=== PATIENT | female | born 1950 | race Caucasian/White ===

== ENCOUNTER 2020-05-15 06:04 | Inpatient (IN) ==
[2020-04-29 12:14] LABS: Basophils # 0.1 10*3/uL (0.0-0.2); Basophils % 0.8 % (0.0-0.8); Eosinophils # 0.1 10*3/uL (0.0-0.87); Eosinophils % 1.8 % (0.00-10.9); Hematocrit 37.8 VOL% (35.7-47.0); Hemoglobin 12.1 GM/DL (12.0-16.0); Immature Granulocytes % 0.3 %; Immature Granulocytes Absolute 0.02 #; Lymphocytes # 2.1 10*3/uL (1.4-4.0); Lymphocytes % 27.7 % (21.3-54.2); Mean Corpuscular Volume 78.4 FL (87-102); Mean Platelet Volume 9.7 FL (9.6-12.0); Monocytes % 9.2 % (1.7-12.7); Neutrophils % 60.2 % (38.7-73.9); Platelet Count 383 T/CUMM (130-400); Red Blood Count 4.82 MC/CUMM (3.8-5.5); Red Cell Distribution Width 15.2 % (9.3-17.3); White Blood Count 7.6 T/CUMM (4-12)
[2020-04-29 12:49] LABS: Calcium 8.5 MG/DL (8.5-10.1); Osmolality,Calculated 275.7 MOS/KG (273-304); Potassium 4.4 MMOL/L (3.5-5.1)
[~2020-05-15 06:04] MED LIST: ALVIMOPAN 12 MG CAPSULE PO ONE; cefOXitin 1,000 MG in SYRINGE 1 EACH IV ONE
[2020-05-15] MEDS ORDERED: MIDAZOLAM 2 MG/2 ML VIAL ONE (06:22)
[2020-05-15] MEDS ORDERED: fentaNYL 100 MCG/2 ML VIAL ONE ×2 (06:23→09:34)
[2020-05-15] MEDS ORDERED: INDOCYANINE GREEN 25 MG VIAL IV ONE (06:23)
[2020-05-15] MEDS ORDERED: cefOXitin 1,000 MG in SYRINGE 1 EACH IV ONE (06:30)
[2020-05-15] MEDS ORDERED: ALVIMOPAN 12 MG CAPSULE PO ONE (06:30)
[2020-05-15] MEDS: LACTATED RINGERS 1,000 ML IV SCH ×3 (06:52→11:16)
[2020-05-15] MEDS ORDERED: ePHEDrine 50 MG/ML VIAL ONE (07:41)
[2020-05-15] MEDS ORDERED: propofoL 200 MG/20 ML VIAL IV ONE (07:45)
[2020-05-15] MEDS ORDERED: LIDOCAINE 2% 5 ML VIAL ONE (07:45)
[2020-05-15] MEDS ORDERED: SEVOFLURANE 1 UNIT/15 MINUTE INH ONE ×14 (07:45→11:27)
[2020-05-15] MEDS ORDERED: ROCURONIUM 50 MG/5 ML VIAL IV ONE ×2 (07:45→08:16)
[2020-05-15] MEDS ORDERED: ONDANSETRON 4 MG/2 ML VIAL ONE (10:34)
[2020-05-15] MEDS ORDERED: NEOSTIGMINE 10 MG/10 ML VIAL ONE ×3 (10:37)
[2020-05-15] MEDS ORDERED: GLYCOPYRROLATE 0.4 MG/2 ML VIAL ONE (10:38)
[2020-05-15] MEDS ORDERED: MORPHINE 4 MG/1 ML VIAL IV PRN (11:11)
[2020-05-15] MEDS ORDERED: GLUCAGON 1 MG VIAL IM PRN (11:15)
[2020-05-15] MEDS ORDERED: DEXTROSE 50% 25 GM/50 ML VIAL IV PRN (11:15)
[2020-05-15] MEDS ORDERED: ONDANSETRON 4 MG/2 ML VIAL IV PRN (11:39)
[2020-05-15 11:42] LABS: Bilirubin,Urine Negative (Negative); Blood, Urine Negative (Negative); Glucose,Urine (UA) Negative (Negative); Hyaline Casts,Urine 8 /LPF (0-3); Ketones,Urine Negative (Negative); Mucus,Urine Occasional /LPF (Occasional); Nitrite,Urine Negative (Negative); Protein,Urine Negative; RBC,Urine 1 /HPF (0-4); Squamous Epithelial Cell,Urine Occasional /HPF (0-10); Urine Appearance CLEAR (Clear); Urine Color Yellow (Yellow); Urine Specific Gravity 1.021 (1.001-1.035); Urine Urobilinogen < 2.0 EU/DL (0.2-1.0); WBC,Urine <1 /HPF (0-6)
[2020-05-15] MEDS: HYDROmorphone 2 MG/1 ML VIAL IV PRN ×2 (11:48→12:05)
[2020-05-15 12:17] LABS: Hematocrit 33.9 VOL% (35.7-47.0)
[2020-05-15] MEDS: cefOXitin 2,000 MG in SYRINGE 1 EACH IV SCH ×2 (15:49→20:08)
[2020-05-15] MEDS: DEXTROSE 5% LACTATED RINGERS 1,000 ML IV SCH (17:15)
[2020-05-15] MEDS: INSULIN REGULAR 100 UNIT/ML SUBCUT SCH (18:59)
[2020-05-15] MEDS: ALVIMOPAN 12 MG CAPSULE PO SCH (20:09)
[2020-05-16] MEDS: INSULIN REGULAR 100 UNIT/ML SUBCUT SCH ×4 (01:21→19:00)
[2020-05-16] MEDS: DEXTROSE 5% LACTATED RINGERS 1,000 ML IV SCH ×5 (01:26→22:15)
[2020-05-16] MEDS: cefOXitin 2,000 MG in SYRINGE 1 EACH IV SCH (03:10)
[2020-05-16] MEDS: ENOXAPARIN 40 MG/0.4 ML SYRINGE SUBCUT SCH (05:37)
[2020-05-16 05:40] LABS: Basophils % 0.3 % (0.0-0.8); Eosinophils # 0.1 10*3/uL (0.0-0.87); Eosinophils % 0.5 % (0.00-10.9); Hematocrit 32.4 VOL% (35.7-47.0); Hemoglobin 10.5 GM/DL (12.0-16.0); Immature Granulocytes % 0.5 %; Immature Granulocytes Absolute 0.05 #; Lymphocytes # 1.8 10*3/uL (1.4-4.0); Lymphocytes % 18.9 % (21.3-54.2); Mean Corpuscular HGB Conc 32.4 GM/DL (32-36); Mean Corpuscular Volume 77.7 FL (87-102); Mean Platelet Volume 9.9 FL (9.6-12.0); Monocytes % 12.6 % (1.7-12.7); Neutrophils % 67.2 % (38.7-73.9); Platelet Count 278 T/CUMM (130-400); Red Blood Count 4.17 MC/CUMM (3.8-5.5); Red Cell Distribution Width 15.8 % (9.3-17.3); White Blood Count 9.4 T/CUMM (4-12)
[2020-05-16 06:00] LABS: Calcium 8.1 MG/DL (8.5-10.1); Potassium 3.4 MMOL/L (3.5-5.1)
[2020-05-16] MEDS: PANTOPRAZOLE 40 MG TABLET PO SCH (09:14)
[2020-05-16] MEDS: ALVIMOPAN 12 MG CAPSULE PO SCH ×2 (09:14→22:15)
[2020-05-16] MEDS: ONDANSETRON 4 MG/2 ML VIAL IV PRN ×3 (12:08→22:15)
[2020-05-17] MEDS: INSULIN REGULAR 100 UNIT/ML SUBCUT SCH ×4 (00:34→23:33)
[2020-05-17] MEDS: DEXTROSE 5% LACTATED RINGERS 1,000 ML IV SCH ×3 (04:00→21:21)
[2020-05-17] MEDS: ENOXAPARIN 40 MG/0.4 ML SYRINGE SUBCUT SCH (06:02)
[2020-05-17] MEDS: PANTOPRAZOLE 40 MG TABLET PO SCH (09:23)
[2020-05-17] MEDS: ALVIMOPAN 12 MG CAPSULE PO SCH ×2 (09:23→21:19)
[2020-05-18] MEDS: ENOXAPARIN 40 MG/0.4 ML SYRINGE SUBCUT SCH (05:42)
[2020-05-18] MEDS: INSULIN REGULAR 100 UNIT/ML SUBCUT SCH ×4 (07:45→23:07)
[2020-05-18] MEDS: ALVIMOPAN 12 MG CAPSULE PO SCH ×2 (08:32→21:24)
[2020-05-18] MEDS: PANTOPRAZOLE 40 MG TABLET PO SCH (08:32)
[2020-05-18] MEDS: DEXTROSE 5% LACTATED RINGERS 1,000 ML IV SCH ×2 (11:59→17:14)
[2020-05-19] MEDS: INSULIN REGULAR 100 UNIT/ML SUBCUT SCH ×4 (00:34→18:08)
[2020-05-19] MEDS: DEXTROSE 5% LACTATED RINGERS 1,000 ML IV SCH ×3 (00:47→20:12)
[2020-05-19] MEDS: ENOXAPARIN 40 MG/0.4 ML SYRINGE SUBCUT SCH (05:47)
[2020-05-19] MEDS: LEVOTHYROXINE 100 MCG TABLET PO SCH (05:47)
[2020-05-19] MEDS: ALVIMOPAN 12 MG CAPSULE PO SCH ×2 (08:20→21:17)
[2020-05-19] MEDS: ATORVASTATIN 40 MG TABLET PO SCH (08:20)
[2020-05-19] MEDS: PANTOPRAZOLE 40 MG TABLET PO SCH (08:20)
[2020-05-20] MEDS: ENOXAPARIN 40 MG/0.4 ML SYRINGE SUBCUT SCH (05:14)
[2020-05-20] MEDS: INSULIN REGULAR 100 UNIT/ML SUBCUT SCH (05:18)
[2020-05-20] MEDS: LEVOTHYROXINE 100 MCG TABLET PO SCH (06:33)
[2020-05-20] MEDS: ALVIMOPAN 12 MG CAPSULE PO SCH (10:37)
[2020-05-20] MEDS: PANTOPRAZOLE 40 MG TABLET PO SCH (10:37)
[2020-05-20] MEDS: ATORVASTATIN 40 MG TABLET PO SCH (10:37)
[2020-05-20 11:13] VITALS: BP 141/63
== END 2020-05-20 11:14 | disposition home or self-care (01) | DRG 330 ==
LOC: N.OR 06:04 → N.SDSINP 06:06 → N.3E 12:45
PROVIDERS: ADMIT Surgery; ATTEND Surgery